=== PATIENT | female | born 1995 | race Caucasian/White ===

== ENCOUNTER 2016-12-04 13:57 | Emergency (ER) | payer OTHER ==
[~2016-12-04] VITALS: Ht 160 cm; Wt 64.9 kg
[2016-12-04 14:04] VITALS: TEMP 37; Ht 160 cm; Wt 64.9 kg
[2016-12-04] MEDS ORDERED: IBUP-1050 PO (14:44)
[2016-12-04 14:51] LABS: URINE APPEARANCE CLEAR (CLEAR); URINE BILIRUBIN NEG (NEG); URINE COLOR YELLOW; URINE NITRITE NEG (NEG); URINE SPECIFIC GRAVITY 1.008 (1.000-1.030); UROBILINOGEN NEG (NEG); ZZUR CULT IF INDIC CLEAN CATCH NO
[2016-12-04 14:52] LABS: MANUAL MICROSCOPIC REQUIRED? NO; REVIEW REQ? NO
[2016-12-04 14:59] LABS: BASO % 0.2 %; BASO ABS # 0.02 K/uL (0-0.2); COMPLETE YES; EOS % 0.2 %; HEMATOCRIT 40.2 % (37-47); IG% 0.2 %; LYMPH ABS # 1.34 K/uL (1.2-3.4); MEAN CELL VOLUME 84.6 fL (80-100); MEAN CORPUSCULAR HEMOGLOBIN 29.5 pg (25-34); MEAN CORPUSCULAR HGB CONC 34.8 g/dl (32-36); MEAN PLATELET VOLUME 9.5 fL (7.4-10.4); MONO % 7.8 %; NEUT % 78.6 %; PLATELET COUNT 221 K/uL (130-400); RED BLOOD COUNT 4.75 M/uL (4.2-5.4); WHITE BLOOD COUNT 10.34 K/uL (4.8-10.8)
[2016-12-04] MEDS ORDERED: SODIUM CHLORIDE 0.9% 1000ML 1,000 ML IV STA (15:09)
[2016-12-04 15:22] LABS: CALCIUM 9.4 mg/dl (8.5-10.1); CREATININE 0.78 mg/dl (0.60-1.20); POTASSIUM 3.8 mmol/L (3.5-5.1)
--- NOTE | 2016-12-04 16:56 | DIAGNOSTIC IMAGING REPORT ---
ULTRASOUND RIGHT UPPER QUADRANT ABDOMEN CLINICAL HISTORY: Right upper quadrant abdominal pain. Elevated hepatic transaminases. COMPARISON STUDY: No priors. TECHNIQUE: Real-time, grayscale, and color flow sonography of the right upper quadrant of the abdomen was performed. Images are reviewed in the transverse and longitudinal planes. FINDINGS: Liver: The liver is mildly enlarged measuring over 18 cm in length. There is slightly increased echotexture suggesting steatosis. There is no intrahepatic biliary ductal dilatation. The main portal vein is patent. Gallbladder: The gallbladder partially contracted and normal in appearance. No gallstones are identified. There is no gallbladder wall thickening or pericholecystic fluid. A sonographic Santana's sign is reportedly absent. The common bile duct measures up to 0.5 cm in diameter. Pancreas: Visualized portions of the pancreatic head and body are normal in appearance. Right kidney: Survey images of the right kidney demonstrate normal size and echotexture. There is no hydronephrosis. Ascites: None. IMPRESSION: 1. No acute abnormality is identified in the right upper quadrant. No gallstones are seen. 2. Mild hepatomegaly with evidence of mild steatosis. Electronically signed by: Rocky Byrd M.D. 12/04/2016 4:55 PM Dictated Date/Time: 12/04/2016 4:53 PM
[2016-12-04 17:29] VITALS: BP 116/58; PULSE 60; O2SAT 100
--- NOTE | 2016-12-04 17:43 | EMERGENCY ROOM VISIT NOTE ---
History Report prepared by Juve: Melody Mensah Under the Supervision of: Dr. Lonnie Chaudhry M.D. First contact with patient: 14:35 Chief Complaint: ABDOMINAL PAIN Stated Complaint: ABDOMINAL PAIN Nursing Triage Summary: Triage note; pt reports "i woke up with severe abd pain this morning ." pt reports pain is in mid upper abd. History of Present Illness The patient is a 21 year old female who presents to the Emergency Room with complaints of persistent upper abdominal pain starting this morning. She visited [facility] who sent her to the ED. She states that her pain has subsided since this morning. She currently rates her discomfort as a 2/10 in severity. At worst , her discomfort was a 7/10 in severity. She states that the pain was mostly present right under her sternum and radiated slightly throughout her abdomen and into her back. She describes her pain as an "odd" pain and recounts that she felt unable to relax or get into a comfortably position. She has never experienced this type of pain before. She took 400 mg of ibuprofen for her pain. She woke up this morning and went on a run which is part of her normal routine. She ate a breakfast of eggs and toast at around 0730 and soon after began to experience the pain. She has not eaten anything since. She denies excessive use of ibuprofen. She reports that her grandmother has had a cholecystectomy. Her LNMP was 2 weeks ago. Pt denies LOC, headache, fevers, chills, diaphoresis, visual changes, neck pain, chest pain, breathing difficulties, nausea, vomiting, melena, hematochezia, urinary symptoms, numbness , weakness, lymphadenopathy, rash, or other complaints. Source of History: patient Onset: this morning Position: abdomen (upper) Symptom Intensity: 7/10 at worst Quality: other ("odd" pain) Timing: other (persistent) Modifying Factors (Relieving): ibuprofen Associated Symptoms: + back pain (slightly radiating from the abdomen) Review of Systems See HPI for pertinent positives and negatives. A total of ten systems were reviewed and were otherwise negative. Family History FHx: cholecystectomy Social History Smoking Status: Never Smoker Alcohol Use: occasionally Marital Status: single Occupation Status: [employer] student Current/Historical Medications Scheduled PRN Ibuprofen (Advil), 400 MG PO Q6H PRN for Pain or Fever Allergies Coded Allergies: POLLEN (Unverified Allergy, Mild, SEASONAL, 12/04/16) Physical Exam Vital Signs Date Time Temp Pulse Resp B/P Pulse Ox O2 Delivery O2 Flow Rate FiO2 12/04/16 17:29 60 20 116/58 100 12/04/16 15:18 68 16 120/68 100 12/04/16 14:04 37.0 80 18 123/85 99 Room Air Physical Exam GENERAL: Awake, alert, well-appearing, in no distress HENT: Normocephalic, atraumatic. Oropharynx unremarkable. EYES: Normal conjunctiva. Sclera non-icteric. NECK: Supple. No nuchal rigidity. FROM. No JVD. RESPIRATORY: Clear to auscultation. CARDIAC: Regular rate, normal rhythm. Extremities warm and well perfused. Pulses equal. ABDOMEN: Soft, non-distended. No tenderness to palpation. No rebound or guarding. No masses. RECTAL: Deferred. MUSCULOSKELETAL: Chest examination reveals no tenderness. The back is symmetrical on inspection without obvious abnormality. There is no CVA tenderness to palpation. No joint edema. LOWER EXTREMITIES: Calves are equal size bilaterally and non-tender. No edema. No discoloration. NEURO: Normal sensorium. No sensory or motor deficits noted. SKIN: No rash or jaundice noted. Medical Decision & Procedures ER Provider Diagnostic Interpretation: Radiology results as stated below per my review and radiologist interpretation: ULTRASOUND RIGHT UPPER QUADRANT ABDOMEN CLINICAL HISTORY: Right upper quadrant abdominal pain. Elevated hepatic transaminases. COMPARISON STUDY: No priors. TECHNIQUE: Real-time, grayscale, and color flow sonography of the right upper quadrant of the abdomen was performed. Images are reviewed in the transverse and longitudinal planes. FINDINGS: Liver: The liver is mildly enlarged measuring over 18 cm in length. There is slightly increased echotexture suggesting steatosis. There is no intrahepatic biliary ductal dilatation. The main portal vein is patent. Gallbladder: The gallbladder partially contracted and normal in appearance. No gallstones are identified. There is no gallbladder wall thickening or pericholecystic fluid. A sonographic Santana's sign is reportedly absent. The common bile duct measures up to 0.5 cm in diameter. Pancreas: Visualized portions of the pancreatic head and body are normal in appearance. Right kidney: Survey images of the right kidney demonstrate normal size and echotexture. There is no hydronephrosis. Ascites: None. IMPRESSION: 1. No acute abnormality is identified in the right upper quadrant. No gallstones are seen. 2. Mild hepatomegaly with evidence of mild steatosis. Electronically signed by: Rocky Byrd M.D. 12/04/2016 4:55 PM Dictated Date/Time: 12/04/2016 4:53 PM Laboratory Results 12/04/16 14:48 Red Blood Count 4.75, Mean Corpuscular Volume 84.6, Mean Corpuscular Hemoglobin 29.5, Mean Corpuscular Hemoglobin Concent 34.8, Mean Platelet Volume 9.5, Neutrophils (%) (Auto) 78.6, Lymphocytes (%) (Auto) 13.0, Monocytes (%) (Auto) 7.8, Eosinophils (%) (Auto) 0.2, Basophils (%) (Auto) 0.2, Neutrophils # (Auto) 8.13, Lymphocytes # (Auto) 1.34, Monocytes # (Auto) 0.81, Eosinophils # (Auto) 0.02, Basophils # (Auto) 0.02 12/04/16 14:48 Test 12/04/16 14:40 12/04/16 14:48 Urine Color YELLOW Urine Appearance CLEAR (CLEAR) Urine pH 5.0 (4.5-7.5) Urine Specific Shaw 1.008 (1.000-1.030) Urine Protein NEG (NEG) Urine Glucose (UA) NEG (NEG) Urine Ketones TRACE (NEG) Urine Occult Blood NEG (NEG) Urine Nitrite NEG (NEG) Urine Bilirubin NEG (NEG) Urine Urobilinogen NEG (NEG) Urine Leukocyte Esterase NEG (NEG) Urine Test NEG (NEG) White Blood Count 10.34 K/uL (4.8-10.8) Red Blood Count 4.75 M/uL (4.2-5.4) Hemoglobin 14.0 g/dL (12.0-16.0) Hematocrit 40.2 % (37-47) Mean Corpuscular Volume 84.6 fL (80-100) Mean Corpuscular Hemoglobin 29.5 pg (25-34) Mean Corpuscular Hemoglobin Concent 34.8 g/dl (32-36) Platelet Count 221 K/uL (130-400) Mean Platelet Volume 9.5 fL (7.4-10.4) Neutrophils (%) (Auto) 78.6 % Lymphocytes (%) (Auto) 13.0 % Monocytes (%) (Auto) 7.8 % Eosinophils (%) (Auto) 0.2 % Basophils (%) (Auto) 0.2 % Neutrophils # (Auto) 8.13 K/uL (1.4-6.5) Lymphocytes # (Auto) 1.34 K/uL (1.2-3.4) Monocytes # (Auto) 0.81 K/uL (0.11-0.59) Eosinophils # (Auto) 0.02 K/uL (0-0.5) Basophils # (Auto) 0.02 K/uL (0-0.2) RDW Standard Deviation 38.0 fL (36.4-46.3) RDW Coefficient of Variation 12.4 % (11.5-14.5) Immature Granulocyte % (Auto) 0.2 % Immature Granulocyte # (Auto) 0.02 K/uL (0.00-0.02) Anion Gap 8.0 mmol/L (3-11) Est Creatinine Clear Calc Drug Dose 102.5 ml/min Estimated GFR () 125.1 Estimated GFR (Non- 107.9 BUN/Creatinine Ratio 14.0 (10-20) Calcium Level 9.4 mg/dl (8.5-10.1) Total Bilirubin 0.6 mg/dl (0.2-1) Direct Bilirubin 0.2 mg/dl (0-0.2) Aspartate Amino Transf (AST/SGOT) 63 U/L (15-37) Alanine Aminotransferase (ALT/SGPT) 51 U/L (12-78) Alkaline Phosphatase 87 U/L (45-117) Total Creatine Kinase 132 U/L (26-192) Total Protein 8.2 gm/dl (6.4-8.2) Albumin 4.8 gm/dl (3.4-5.0) Lipase 71 U/L (73-393) Laboratory results reviewed by me Medications Administered Medications (Trade) Dose Ordered Sig/Onesimo Route Start Time Stop Time Status Last Admin Dose Admin Sodium Chloride (Nss 1000ml) 1,000 ml @ 999 mls/hr Q1H1M STAT IV 12/04/16 15:09 12/04/16 16:09 DC 12/04/16 15:22 999 MLS/HR ED Course 1504: The patient was evaluated in room C8. A complete history and physical exam was performed. 1509: NSS 1000 ml @ 999 mls/hr IV. 1713: I reevaluated the patient. She is feeling completely better. I discussed results and discharge instructions: she verbalized understanding and agreement. The patient is ready for discharge. Medical Decision Triage Nursing notes reviewed. The patient's presentation and history were concerning for upper abdominal pain. Etiologies such as PUD, biliary pathology, pancreatitis, appendicitis, diverticulitis, obstruction, inflammatory bowel disease, renal colic, mesenteric ischemia, aortic pathology, infections, genitourinary, UTI, perforated viscus, , as well as others were entertained. The patient was evaluated. Her symptoms were very minimal and resolved without any medications. Her CBC, urinalysis, test, chemistry panel, total CK and lipase were normal. AST was minimally elevated. The patient underwent ultrasound imaging which did not reveal any abnormalities. On reassessment she was asymptomatic. All of her symptoms resolved. The exact etiology of her pain is not obvious at this time. I discussed the need for close follow-up. The patient was in agreement. By the evaluation outlined above other emergent etiologies such as those listed in the differential, as well as others, were deemed relatively unlikely. The patient was informed about the findings as listed above. All questions were answered and she was pleased with the treatment. Return instructions were outlined and the patient was discharged in stable condition. The patient was referred to [facility] for follow-up for a recheck of the current condition. The chart was completed utilizing [employer] Speech voice recognition software. Grammatical errors, random word insertions, pronoun errors, and incomplete sentences are an occasional consequence of this system due to software limitations, ambient noise, and hardware issues. Any formal questions or concerns about the content, text, or information contained within the body of this dictation should be directly addressed to the physician for clarification. Impression Primary Impression: Upper abdominal pain Additional Impression: Elevated LFTs Scribe Attestation The scribe's documentation has been prepared under my direction and personally reviewed by me in its entirety. I confirm that the note above accurately reflects all work, treatment, procedures, and medical decision making performed by me. Departure Information Dispostion Home / Self-Care Referrals No Doctor, Assigned (PCP) Forms HOME CARE DOCUMENTATION FORM, IMPORTANT VISIT INFORMATION, School Instructions Patient Instructions My [facility] Additional Instructions ABDOMINAL PAIN INSTRUCTIONS: Ibuprofen(Motrin, Advil) may be used for fever or pain. Use 600mg every six hours as needed. Take with food. Avoid using more than 2400mg in a 24 hour period. Do not use 2400mg per day for more than three consecutive days without physician direction. Prolonged inappropriate use can lead to stomach upset or ulcers. Rest and drink plenty of fluids as tolerated. Slow sips of water or sports drinks are recommended instead of large amounts all at once. Continue current medications. Once your stomach is settled start with a clear liquid diet (jello, soup broth, etc.) and then advance as tolerated. You should avoid full, heavy meals for about 24 hrs from the time your symptoms resolved. Return to the ER immediately for worsening or persistent abdominal pain, vomiting, fevers, chest pains, difficulty breathing, black or bloody stools, worsening of your condition, or as needed. Follow up with [facility] in 1-2 days for a recheck of your LFTs and for a recheck of your abdominal pain episode. Problem Qualifiers
== END 2016-12-04 17:30 | disposition home or self-care (01) ==
LOC: C.EDB 13:59 → C.EDC 17:30
DX: R10.10 Upper abdominal pain, unspecified (principal); Z91.09 Other allergy status, other than to drugs and biological substances; Z84.1 Family history of disorders of kidney and ureter